=== PATIENT | female | born 1940 | race Caucasian/White ===

== ENCOUNTER 2018-02-07 14:00 | Emergency (ER) | payer OTHER, BC ==
[~2018-02-07] VITALS: Ht 170.2 cm; Wt 75.4 kg
[~2018-02-07 14:00] MED LIST: ASPIR-LOW81 MG PO; ATENOLOL/CHLOR1 EAC1 PO; CALCITONIN-SAL3.8 ML NS; CALCIUM 600 +1 EAC2 PO; DAILY VALUE1 EACH PO; LEVOTHYROXINE50 MCG PO; LIPITOR10 MG PO; LOTRISONE15 GM TP; MAGNESIUM250 MG PO; POTASSIUM CHLO20 ME1 PO; SYSTANE ULTRA 015 ML BOTH EYES; VITAMIN D1000 UNIT PO
[2018-02-07 16:35] LABS: HEMATOCRIT 34.1 % (36.0-46.0); HEMOGLOBIN 11.7 G/DL (11.9-15.5); MCHC 34.3 G/DL (30.0-36.0); MCV 84.4 FL (83-99); PLATELET COUNT 257 K/uL (156-360); RBC DIS.WIDTH-SD 43.1 % (39-53); RED BLOOD COUNT 4.04 M/uL (3.80-5.20); WHITE BLOOD COUNT 6.2 K/uL (4.1-10.2)
[2018-02-07 16:43] LABS: CHLORIDE 97 mEq/L (99-109); POTASSIUM 3.6 mEq/L (3.7-5.4); SODIUM 133 mEq/L (136-147)
[2018-02-07 16:45] LABS: GLUCOSE 117 mg/dL (70-99)
[2018-02-07 16:49] LABS: CREATININE 0.7 mg/dL (0.6-1.3); GFR ESTIMATE (CALCULATED) > 59 mL/min/
[2018-02-07 16:50] LABS: UREA NITROGEN (BUN) 10 mg/dL (9-23)
[2018-02-07 17:16] VITALS: BP 188/78
== END 2018-02-07 17:16 | disposition home or self-care (01) ==
LOC: EME 14:00
PROVIDERS: Emergency Medicine
DX: R25.2 Cramp and spasm (principal); M79.662 Pain in left lower leg; Z85.3 Personal history of malignant neoplasm of breast
CPT/HCPCS: 80048; 85027; 93971; 99281; 99284

== ENCOUNTER → 2018-05-06 | Outpatient (CLI) | payer MEDICARE, BC | END | disposition home or self-care (01) | LOC: CDC 08:40 | DX: Z01.810 Encounter for preprocedural cardiovascular examination (principal); R94.31 Abnormal electrocardiogram [ECG] [EKG] | CPT/HCPCS: 93000 ==